=== PATIENT | female | born 1960 | race Caucasian/White ===

== ENCOUNTER 2017-09-17 03:38 | Emergency (ER) | payer MEDICARE, MEDICAID, SELFPAY ==
[2017-09-17 03:47] VITALS: BP 102/51; PULSE 72; RESP 18; TEMP 36.6; O2SAT 100; BMI 24.7
--- NOTE | 2017-09-17 03:48 | DI.CT.S_ITS ---
PROCEDURE: CT KIDNEY URETER BLADDER (KUB) INDICATIONS: 56 year-old female with bilateral flank pain, and history of left kidney stones. TECHNIQUE: Noncontrast 5 mm thick sections acquired from the diaphragms to the symphysis. 5 mm thick coronal and sagittal reformats were then performed. For radiation dose reduction, the following was used: automated exposure control, adjustment of mA and/or kV according to patient size. COMPARISON: [facility], CT, CT ABD PELVIS W CON, 10/30/2015, 11:45. [facility], CT, ABD/PELVIS W/CON (PNL), 04/17/2011, 16:17. [facility], RG, CT KUB, 03/11/2004, 3:24. FINDINGS: Preliminary interpretation rendered by [employer]. Image quality: Excellent. Lung bases: Lung bases are clear. Heart size is normal. Urinary system: Both kidneys are normal in size. 4 nonobstructing left renal stones are present, measuring up to 4 mm. Solitary 1 mm right renal stone is present as well. There is mild left hydronephrosis. No perinephric fat stranding. Both ureters appear non-dilated throughout their expected courses, with a 1 mm proximal left ureteral stone on axial image 44 and coronal image 25. Bladder wall thickness is normal; no calcified bladder stones. Other solid organs: Liver is normal in size. Gallbladder is surgically absent. Pancreas is normal in contours. Spleen is normal in size. No adrenal nodules. Peritoneum and bowel: Unenhanced bowel loops demonstrate normal wall thickness and caliber. The appendix appears normal. No free fluid or air. Nodes and vessels: No retroperitoneal or mesenteric adenopathy by size criteria. Aorta and inferior vena cava are normal in caliber, with minimal aortoiliac atherosclerosis. Abdominal wall: No ventral hernias. Pelvis: No free pelvic fluid. No inguinal hernias or adenopathy. The uterus is surgically absent. The ovaries are normal in size. Bones: No suspicious bony lesions. No vertebral body compression fractures. There is grade 1 L4-L5 spondylolisthesis from facet joint degeneration. IMPRESSION: 1. 1 mm proximal left ureteral stone causes mild left hydroureteronephrosis. 2. Several additional bilateral nonobstructing renal stones, measuring up to 4 mm on the left. No significant discrepancy with preliminary [employer] report. Dictated by: Bob Levine M.D. on 09/17/2017 at 8:17 Approved by: Bob Levine M.D. on 09/17/2017 at 8:26
--- NOTE | 2017-09-17 03:51 | ED.ABDPAIN ---
HPI - Abdominal Pain General Chief Complaint: Abdominal Pain Stated Complaint: n/v, back pain Time Seen by Provider: 09/17/17 03:39 Source: patient and EMS Mode of arrival: EMS Limitations: no limitations History of Present Illness HPI narrative: Patient is a 57-year-old female presenting that she feels like is a kidney stone. Woke up from her sleep she has bilateral flank pain and lower abdominal pain she has had multiple soft bowel movements today. Pain comes and goes in waves feeling nauseated and vomiting. She received fentanyl and Zofran with EMS this still feeling nauseated. No fever or chills. She has required lithotripsy in the past. Pain Consistency: intermittent Related Data Home Medications Medication Instructions Recorded Confirmed CA PANTOTHENATE/FOLIC ACID/VIT 1 tab PO QDAY #0 05/07/12 (MULTIVITAMIN) CHOLECALCIFEROL (VITAMIN D) 2,000 units PO QDAY #0 05/07/12 Fish Oil 1,000 mg PO QDAY #0 05/07/12 albuterol sulfate [Proventil HFA] 1 puff INH PRN #8.5 gm 05/07/12 hydrocodone-acetaminophen [[place]] 1 tab PO Q4H PRN #0 05/18/12 diazepam [Valium] 5 mg PO BID #0 10/27/12 Previous Rx's Medication Instructions Recorded beclomethasone dipropionate [Qvar] 0 INH BID #1 inh 10/27/12 cetirizine 10 mg PO HS #30 10/27/12 ondansetron [Zofran ODT] 4 mg PO Q6H PRN #10 tab 09/17/17 sulfamethoxazole-trimethoprim 1 tab PO BID 7 Days #14 tab 09/17/17 [Bactrim DS] Allergies Allergy/AdvReac Type Severity Reaction Status Date / Time gluten Allergy Intermediate SWELLING Verified 09/17/17 03:54 erythromycin base AdvReac Mild N/V Verified 09/17/17 03:54 lactose AdvReac Mild GAS/BLOATIN Verified 09/17/17 03:54 G Review of Systems Review of Systems All systems reviewed & are unremarkable except as noted in HPI and below Constitutional Denies chills, Denies fever(s), Denies headache(s), Denies lethargy and Denies weakness ENT Ears, Nose, Mouth, and Throat: Denies dizziness and Denies headache(s) Cardiovascular Denies chest pain, Denies irregular heart rhythm, Denies lightheadedness, Denies palpitations, Denies dyspnea, Denies dyspnea on exertion and Denies orthopnea Respiratory Denies cough, Denies dyspnea, Denies dyspnea on exertion and Denies wheezing Gastrointestinal Gastrointestinal: Reports system reviewed and no additional complaints, except as docu, Reports abdominal pain, Reports nausea and Reports vomiting Genitourinary Reports system reviewed and no additional complaints, except as docu and Reports as per HPI Neurologic Denies dizziness, Denies headache(s) and Denies weakness Endocrine Denies palpitations Allergic/Immunologic Denies wheezing PFSH Medical History Kidney stones (Acute) Surgical History History of lithotripsy (Acute) Exam Initial Vital Signs Initial Vital Signs: Vital Signs Temperature 97.9 F 09/17/17 03:47 Pulse Rate 72 09/17/17 03:47 Respiratory Rate 18 09/17/17 03:47 Blood Pressure 102/51 L 09/17/17 03:47 Pulse Oximetry 100 09/17/17 03:47 GENERAL: Alert well-appearing female actively vomiting HEENT: Head atraumatic,EOMI, pupils reactive, face symmetric, [moist] mucous membranes CARDIOVASCULAR: Regular rate and rhythm without murmurs, rubs or gallops. RESPIRATORY: Breath sounds equal bilaterally, no wheezes rales or rhonchi. ABDOMEN: Soft, mild lower abdominal tenderness without guarding or rebound. Normoactive bowel sounds all 4 quadrants. : Bilateral CVA tenderness EXTREMITIES: Normal range of motion, no clubbing or edema. Neurovascularly intact NEUROLOGICAL: Alert and oriented x4.Normal gait and speech. Cranial nerves II through XII grossly intact. SKIN: Warm, dry, no laceration, no petechiae, no rashes or lesions. Course Orders Ordered: ED Orders 09/17/17 03:48 CT kidney ureter bladder (KUB) Stat 09/17/17 04:16 Complete Blood Count AUTO DIFF Stat Comprehensive Metabolic Panel Stat Lipase Stat 09/17/17 04:58 Urine Culture Stat Urine Microscopic Stat Discontinued Medications Sodium Chloride (Normal Saline 0.9%) 1,000 mls @ 1,000 mls/hr IV CONT MEL Last Infusion: 09/17/17 05:38 Dose: 1,000 mls/hr Admin: 09/17/17 04:00 Dose: 1,000 mls/hr Ketorolac Tromethamine (Toradol) 30 mg IV NOW ONE Stop: 09/17/17 03:49 Last Admin: 09/17/17 03:59 Dose: 30 mg Ondansetron HCl (Zofran) 4 mg IV NOW ONE Stop: 09/17/17 03:49 Last Admin: 09/17/17 03:59 Dose: 4 mg Ondansetron HCl (Zofran Odt Prepack) 1 bottle MISC SEEINSTR ONE Stop: 09/17/17 05:26 Last Admin: 09/17/17 05:26 Dose: 1 bottle Vital Signs - 8 hr 09/17/17 03:47 09/17/17 05:36 Temperature 97.9 F Pulse Rate 72 74 Respiratory Rate 18 14 Blood Pressure 102/51 L 116/63 Pulse Oximetry 100 100 MDM - Abdominal Pain Lab Data Attestation: I reviewed the patient's lab results. Result diagrams: 09/17/17 04:16 09/17/17 04:16 Lab Results 09/17/17 09/17/17 09/17/17 Range/Units 04:16 04:16 04:58 WBC 15.1 H (4.5-11.0) X10^3/uL RBC 4.57 (4.0-5.2) X10^6/uL Hgb 14.1 (12.0-16.0) g/dL Hct 41.6 (36-46) % MCV 91.0 (80-100) fL MCH 30.8 (26-34) PG MCHC 33.8 (30-36) % RDW 13.1 (11.6-14.8) % Plt Count 242 (150-400) X10^3/uL Neut % (Auto) 90.4 H (50-75) % Lymph % (Auto) 5.1 L (25-40) % [place] % (Auto) 4.3 (3-14) % Eos % (Auto) 0.0 L (2-4) % Baso % (Auto) 0.2 (0-2) % Neut # (Auto) 70629 H (1645-4093) /uL Sodium 140 (137-145) mmol/L Potassium 3.9 (3.4-5.1) mmol/L Chloride 101 (98-107) mmol/L Carbon Dioxide 25 (22-32) mmol/L BUN 20 H (7-17) mg/dL Creatinine 0.60 (0.52-1.04) mg/dL Estimated GFR > 60.0 (>60) mL/min BUN/Creatinine Ratio 33.3 H (6-22) Glucose 205 H (70-100) mg/dL Calcium 9.5 (8.4-10.2) mg/dL Total Bilirubin 0.5 (0.2-1.3) mg/dL AST 30 (14-36) IU/L ALT 27 (9-52) IU/L Alkaline Phosphatase 88 (38-126) U/L Total Protein 7.1 (6.3-8.2) g/dL Albumin 4.2 (3.5-5.0) g/dL Globulin 2.9 (1.7-4.1) g/dL Albumin/Globulin Ratio 1.4 (1.0-2.8) Lipase 29 (23-300) U/L Urine RBC 30-100/hpf H (0-5/HPF) Urine WBC 0-1/hpf (0-5/HPF) Ur Squamous Epith Cells 0-1 /hpf Urine Bacteria Few (2-10) H (None) Ur Culture Indicated? Specimen cultured Micro UA Comment Not Reportable Imaging Data CT: KUB: Radiologist's impression: retail shift supervisor report: 3 mm mid left ureteral calculus causes mild left hydronephrosis and mild left hydroureter. Additional bilateral nephrolithiasis. No right hydronephrosis. A normal right ureter. No bladder calculi. Normal appendix. MDM Narrative Medical decision making narrative: Patient pain is much better after Toradol. She know she has multiple stones she is not sure the urologist she used to see. She has some bacteria in her urine and leukocytosis. Will treat for UTI and pyelo. She has Lortab at home for pain control. Instructed on warning signs and when to return to the ED. Discharge Plan Departure Patient Disposition: Home, Self-Care Clinical Impression: Kidney stone on left side, UTI (urinary tract infection) Discharge Date/Time: 09/17/17 05:31 Interventions: ED Discharge Assessment Last Done: 09/17/17 05:36 Instructions: Kidney Stones -- Child Activity Restrictions/Additional Instructions: *Increase fluid intake *Call urology office tomorrow, to schedule follow-up appointment. Strain urine, try to catch stone -If you should have fever, or pain is uncontrolled with medication at home or any other concerning symptoms return to ER for further evaluation MEDICATIONS Take Motrin 800 mg every 8 hours as needed for pain Take Zofran every 4-6 hours if needed for nausea Prescriptions: New ondansetron [Zofran ODT] 4 mg tablet,disintegrating 4 mg PO Q6H PRN (Reason: nausea and vomiting) Qty: 10 RF: 0 sulfamethoxazole-trimethoprim [Bactrim DS] 800-160 mg tablet 1 tab PO BID 7 Days Qty: 14 RF: 0 No Action CA PANTOTHENATE/FOLIC ACID/VIT (MULTIVITAMIN) 1 tab PO QDAY Qty: 0 RF: 0 albuterol sulfate [Proventil HFA] 90 MCG/PUFF HFA aerosol inhaler 1 puff INH PRN Qty: 8.5 RF: 0 CHOLECALCIFEROL (VITAMIN D) 2,000 units PO QDAY Qty: 0 RF: 0 Fish Oil 1,000 mg PO QDAY Qty: 0 RF: 0 hydrocodone-acetaminophen [[place]] 7.5 MG/325 MG tablet 1 tab PO Q4H PRN Qty: 0 RF: 0 diazepam [Valium] 5 MG tablet 5 mg PO BID Qty: 0 RF: 0 cetirizine 10 MG tablet 10 mg PO HS Qty: 30 RF: 2 beclomethasone dipropionate [Qvar] 40 MCG/PUFF aerosol INH BID Qty: 1 RF: 2 Referrals: [facility] [Outside] [facility] [Outside] Freddie Downs MD [Non-Staff] - Hui Edge PA-C [Primary Care Provider] -
--- NOTE | 2017-09-17 03:54 | ED_ITS ---
HPI - Abdominal Pain General Chief Complaint: Abdominal Pain Stated Complaint: n/v, back pain Time Seen by Provider: 09/17/17 03:39 Source: patient and EMS Mode of arrival: EMS Limitations: no limitations History of Present Illness HPI narrative: Patient is a 57-year-old female presenting that she feels like is a kidney stone. Woke up from her sleep she has bilateral flank pain and lower abdominal pain she has had multiple soft bowel movements today. Pain comes and goes in waves feeling nauseated and vomiting. She received fentanyl and Zofran with EMS this still feeling nauseated. No fever or chills. She has required lithotripsy in the past. Pain Consistency: intermittent Related Data Home Medications Medication Instructions Recorded Confirmed CA PANTOTHENATE/FOLIC ACID/VIT 1 tab PO QDAY #0 05/07/12 (MULTIVITAMIN) CHOLECALCIFEROL (VITAMIN D) 2,000 units PO QDAY #0 05/07/12 Fish Oil 1,000 mg PO QDAY #0 05/07/12 albuterol sulfate [Proventil HFA] 1 puff INH PRN #8.5 gm 05/07/12 hydrocodone-acetaminophen [[place]] 1 tab PO Q4H PRN #0 05/18/12 diazepam [Valium] 5 mg PO BID #0 10/27/12 Previous Rx's Medication Instructions Recorded beclomethasone dipropionate [Qvar] 0 INH BID #1 inh 10/27/12 cetirizine 10 mg PO HS #30 10/27/12 ondansetron [Zofran ODT] 4 mg PO Q6H PRN #10 tab 09/17/17 sulfamethoxazole-trimethoprim 1 tab PO BID 7 Days #14 tab 09/17/17 [Bactrim DS] Allergies Allergy/AdvReac Type Severity Reaction Status Date / Time gluten Allergy Intermediate SWELLING Verified 09/17/17 03:54 erythromycin base AdvReac Mild N/V Verified 09/17/17 03:54 lactose AdvReac Mild GAS/BLOATIN Verified 09/17/17 03:54 G Review of Systems Review of Systems All systems reviewed & are unremarkable except as noted in HPI and below Constitutional Denies chills, Denies fever(s), Denies headache(s), Denies lethargy and Denies weakness ENT Ears, Nose, Mouth, and Throat: Denies dizziness and Denies headache(s) Cardiovascular Denies chest pain, Denies irregular heart rhythm, Denies lightheadedness, Denies palpitations, Denies dyspnea, Denies dyspnea on exertion and Denies orthopnea Respiratory Denies cough, Denies dyspnea, Denies dyspnea on exertion and Denies wheezing Gastrointestinal Gastrointestinal: Reports system reviewed and no additional complaints, except as docu, Reports abdominal pain, Reports nausea and Reports vomiting Genitourinary Reports system reviewed and no additional complaints, except as docu and Reports as per HPI Neurologic Denies dizziness, Denies headache(s) and Denies weakness Endocrine Denies palpitations Allergic/Immunologic Denies wheezing PFSH Medical History Kidney stones (Acute) Surgical History History of lithotripsy (Acute) Exam Initial Vital Signs Initial Vital Signs: Vital Signs Temperature 97.9 F 09/17/17 03:47 Pulse Rate 72 09/17/17 03:47 Respiratory Rate 18 09/17/17 03:47 Blood Pressure 102/51 L 09/17/17 03:47 Pulse Oximetry 100 09/17/17 03:47 GENERAL: Alert well-appearing female actively vomiting HEENT: Head atraumatic,EOMI, pupils reactive, face symmetric, [moist] mucous membranes CARDIOVASCULAR: Regular rate and rhythm without murmurs, rubs or gallops. RESPIRATORY: Breath sounds equal bilaterally, no wheezes rales or rhonchi. ABDOMEN: Soft, mild lower abdominal tenderness without guarding or rebound. Normoactive bowel sounds all 4 quadrants. : Bilateral CVA tenderness EXTREMITIES: Normal range of motion, no clubbing or edema. Neurovascularly intact NEUROLOGICAL: Alert and oriented x4.Normal gait and speech. Cranial nerves II through XII grossly intact. SKIN: Warm, dry, no laceration, no petechiae, no rashes or lesions. Course Orders Ordered: ED Orders 09/17/17 03:48 CT kidney ureter bladder (KUB) Stat 09/17/17 04:16 Complete Blood Count AUTO DIFF Stat Comprehensive Metabolic Panel Stat Lipase Stat 09/17/17 04:58 Urine Culture Stat Urine Microscopic Stat Discontinued Medications Sodium Chloride (Normal Saline 0.9%) 1,000 mls @ 1,000 mls/hr IV CONT MEL Last Infusion: 09/17/17 05:38 Dose: 1,000 mls/hr Admin: 09/17/17 04:00 Dose: 1,000 mls/hr Ketorolac Tromethamine (Toradol) 30 mg IV NOW ONE Stop: 09/17/17 03:49 Last Admin: 09/17/17 03:59 Dose: 30 mg Ondansetron HCl (Zofran) 4 mg IV NOW ONE Stop: 09/17/17 03:49 Last Admin: 09/17/17 03:59 Dose: 4 mg Ondansetron HCl (Zofran Odt Prepack) 1 bottle MISC SEEINSTR ONE Stop: 09/17/17 05:26 Last Admin: 09/17/17 05:26 Dose: 1 bottle Vital Signs - 8 hr 09/17/17 03:47 09/17/17 05:36 Temperature 97.9 F Pulse Rate 72 74 Respiratory Rate 18 14 Blood Pressure 102/51 L 116/63 Pulse Oximetry 100 100 MDM - Abdominal Pain Lab Data Attestation: I reviewed the patient's lab results. Result diagrams: 09/17/17 04:16 09/17/17 04:16 Lab Results 09/17/17 09/17/17 09/17/17 Range/Units 04:16 04:16 04:58 WBC 15.1 H (4.5-11.0) X10^3/uL RBC 4.57 (4.0-5.2) X10^6/uL Hgb 14.1 (12.0-16.0) g/dL Hct 41.6 (36-46) % MCV 91.0 (80-100) fL MCH 30.8 (26-34) PG MCHC 33.8 (30-36) % RDW 13.1 (11.6-14.8) % Plt Count 242 (150-400) X10^3/uL Neut % (Auto) 90.4 H (50-75) % Lymph % (Auto) 5.1 L (25-40) % [place] % (Auto) 4.3 (3-14) % Eos % (Auto) 0.0 L (2-4) % Baso % (Auto) 0.2 (0-2) % Neut # (Auto) 59462 H (2457-7924) /uL Sodium 140 (137-145) mmol/L Potassium 3.9 (3.4-5.1) mmol/L Chloride 101 (98-107) mmol/L Carbon Dioxide 25 (22-32) mmol/L BUN 20 H (7-17) mg/dL Creatinine 0.60 (0.52-1.04) mg/dL Estimated GFR > 60.0 (>60) mL/min BUN/Creatinine Ratio 33.3 H (6-22) Glucose 205 H (70-100) mg/dL Calcium 9.5 (8.4-10.2) mg/dL Total Bilirubin 0.5 (0.2-1.3) mg/dL AST 30 (14-36) IU/L ALT 27 (9-52) IU/L Alkaline Phosphatase 88 (38-126) U/L Total Protein 7.1 (6.3-8.2) g/dL Albumin 4.2 (3.5-5.0) g/dL Globulin 2.9 (1.7-4.1) g/dL Albumin/Globulin Ratio 1.4 (1.0-2.8) Lipase 29 (23-300) U/L Urine RBC 30-100/hpf H (0-5/HPF) Urine WBC 0-1/hpf (0-5/HPF) Ur Squamous Epith Cells 0-1 /hpf Urine Bacteria Few (2-10) H (None) Ur Culture Indicated? Specimen cultured Micro UA Comment Not Reportable Imaging Data CT: KUB: Radiologist's impression: shift mgr report: 3 mm mid left ureteral calculus causes mild left hydronephrosis and mild left hydroureter. Additional bilateral nephrolithiasis. No right hydronephrosis. A normal right ureter. No bladder calculi. Normal appendix. MDM Narrative Medical decision making narrative: Patient pain is much better after Toradol. She know she has multiple stones she is not sure the urologist she used to see. She has some bacteria in her urine and leukocytosis. Will treat for UTI and pyelo. She has Lortab at home for pain control. Instructed on warning signs and when to return to the ED. Discharge Plan Departure Patient Disposition: Home, Self-Care Clinical Impression: Kidney stone on left side, UTI (urinary tract infection) Discharge Date/Time: 09/17/17 05:31 Interventions: ED Discharge Assessment Last Done: 09/17/17 05:36 Instructions: Kidney Stones -- Child Activity Restrictions/Additional Instructions: *Increase fluid intake *Call urology office tomorrow, to schedule follow-up appointment. Strain urine, try to catch stone -If you should have fever, or pain is uncontrolled with medication at home or any other concerning symptoms return to ER for further evaluation MEDICATIONS Take Motrin 800 mg every 8 hours as needed for pain Take Zofran every 4-6 hours if needed for nausea Prescriptions: New ondansetron [Zofran ODT] 4 mg tablet,disintegrating 4 mg PO Q6H PRN (Reason: nausea and vomiting) Qty: 10 RF: 0 sulfamethoxazole-trimethoprim [Bactrim DS] 800-160 mg tablet 1 tab PO BID 7 Days Qty: 14 RF: 0 No Action CA PANTOTHENATE/FOLIC ACID/VIT (MULTIVITAMIN) 1 tab PO QDAY Qty: 0 RF: 0 albuterol sulfate [Proventil HFA] 90 MCG/PUFF HFA aerosol inhaler 1 puff INH PRN Qty: 8.5 RF: 0 CHOLECALCIFEROL (VITAMIN D) 2,000 units PO QDAY Qty: 0 RF: 0 Fish Oil 1,000 mg PO QDAY Qty: 0 RF: 0 hydrocodone-acetaminophen [[place]] 7.5 MG/325 MG tablet 1 tab PO Q4H PRN Qty: 0 RF: 0 diazepam [Valium] 5 MG tablet 5 mg PO BID Qty: 0 RF: 0 cetirizine 10 MG tablet 10 mg PO HS Qty: 30 RF: 2 beclomethasone dipropionate [Qvar] 40 MCG/PUFF aerosol INH BID Qty: 1 RF: 2 Referrals: [facility] [Outside] [facility] [Outside] Freddie Downs MD [Non-Staff] - Hui Edge PA-C [Primary Care Provider] -
[2017-09-17] MEDS: ONDANSETRON 4 MG/2 ML INJ IV (03:59)
[2017-09-17] MEDS: KETOROLAC 60 MG/2 ML VIAL 30 MG IV (03:59)
[2017-09-17] MEDS: SODIUM CHLORIDE 0.9% 1,000 ML 1000 ML IV (04:00)
[2017-09-17 04:26] LABS: Add Manual Diff / Slide Review NO; Basophils Percent Auto 0.2 % (0-2); Hematocrit 41.6 % (36-46); Hemoglobin 14.1 g/dL (12.0-16.0); Lymphocytes Percent Auto 5.1 % (25-40); Mean Corpuscular HGB Conc 33.8 % (30-36); Mean Corpuscular Hemoglobin 30.8 PG (26-34); Monocytes Percent Auto 4.3 % (3-14); Neutrophils Absolute Auto 13600 /uL (3000-5900); Neutrophils Percent Auto 90.4 % (50-75); Platelet Count 242 X10^3/uL (150-400); Red Blood Cell Count 4.57 X10^6/uL (4.0-5.2); Red Cell Distribution Width 13.1 % (11.6-14.8); White Blood Cell Count 15.1 X10^3/uL (4.5-11.0)
[2017-09-17 04:33] LABS: Alanine Aminotransferase 27 IU/L (9-52); Albumin 4.2 g/dL (3.5-5.0); Albumin Globulin Ratio 1.4 (1.0-2.8); Alkaline Phosphatase 88 U/L (38-126); Aspartate Aminotransferase 30 IU/L (14-36); BUN Creatinine Ratio 33.3 (6-22); Bilirubin Total 0.5 mg/dL (0.2-1.3); Blood Urea Nitrogen 20 mg/dL (7-17); Calcium 9.5 mg/dL (8.4-10.2); Carbon Dioxide 25 mmol/L (22-32); Chloride 101 mmol/L (98-107); Estimated Glomerular Filt Rate > 60.0 mL/min (>60); Globulin 2.9 g/dL (1.7-4.1); Glucose 205 mg/dL (70-100); HEMOLYSIS < 15 (0-50); Lipase 29 U/L (23-300); Potassium 3.9 mmol/L (3.4-5.1); Sodium 140 mmol/L (137-145); Total Protein 7.1 g/dL (6.3-8.2)
[2017-09-17 05:17] LABS: WBC Urine 0-1/HPF (0-5/HPF)
[2017-09-17 05:18] LABS: Bacteria Urine Few (2-10); Culture Indicated Urine Specimen Cultured; RBC Urine 30-100/HPF (0-5/HPF); Squamous Epithelial Cell Urine 0-1 /HPF
[2017-09-17] MEDS: ONDANSETRON 4 MG ODT PREPACK 1 BOTTLE MISC (05:26)
[2017-09-17 05:36] VITALS: BP 116/63; PULSE 74; RESP 14; O2SAT 100
== END 2017-09-17 05:31 | disposition home or self-care (01) ==
PROVIDERS: Emergency Provider Emergency Medicine; PCP Physician Assistant
DX: N20.0 Calculus of kidney (principal); N39.0 Urinary tract infection, site not specified
CPT/HCPCS: 36415; 74176; 80053; 81003; 81015; 83690; 85025; 87086; 96374; 96375; 99283; 99284; J1885; J2405

== ENCOUNTER → 2017-10-28 09:41 | Outpatient (CLI) | payer MEDICARE, MEDICAID, SELFPAY ==
--- NOTE | 2017-10-28 | DI.RAD.S_ITS ---
PROCEDURE: XR KUB INDICATIONS: KIDNEY STONES TECHNIQUE: One view of the abdomen acquired. COMPARISON: 09/17/2017 CT. FINDINGS: Surgical changes and devices: Right upper quadrant surgical clips. Bowel: Bowel gas pattern is normal. Soft tissues: No suspicious abdominal calcifications. Visualized solid organ contours appear normal in size. Bones: No suspicious bony lesions. IMPRESSION: Known left renal calculi are below the resolution of this study. Dictated by: Oren Ibarra M.D. on 10/28/2017 at 10:25 Approved by: Oren Ibrara M.D. on 10/28/2017 at 10:27
[2017-10-28 12:52] LABS: Calcium 9.9 mg/dL (8.4-10.2); Uric Acid 3.2 mg/dL (2.5-6.2)
[2017-10-30 13:28] LABS: Parathyroid Hormone Int 56 pg/mL (14-64)
== END ==
PROVIDERS: PCP Physician Assistant; Visit Provider Specialist
DX: N20.0 Calculus of kidney (principal)
CPT/HCPCS: 36415; 74018; 82310; 83970; 84550

== ENCOUNTER 2017-11-05 23:09 | Emergency (ER) | payer MEDICARE, MEDICAID, SELFPAY ==
[2017-11-05 23:30] VITALS: BP 151/90; PULSE 113; RESP 18; TEMP 36.5; O2SAT 98
[2017-11-06] MEDS: ONDANSETRON 4 MG ODT PO (00:55)
[2017-11-06] MEDS: KETOROLAC 60 MG/2 ML VIAL IM (00:55)
--- NOTE | 2017-11-06 00:55 | ED_ITS ---
HPI - Nausea/Vomiting/Diarrhea General Chief complaint: Nausea/Vomiting/Diarrhea Stated complaint: sgy today, unable to urinate Time Seen by Provider: 11/06/17 00:50 Source: patient Mode of arrival: ambulatory Limitations: no limitations History of Present Illness HPI Narrative: Patient is a 56-year-old female who presents with decreased urination nausea and increased pain. She had lithotripsy done earlier today. She has only urinated a small amount of blood. She gets nauseated with her pain pills. She is unable to keep the Zofran tablets down previously ODT has worked well. However she is out. No fevers. However due to the severe nausea and pain she has been unable to tolerate any fluids. Released about 4:00 p.m. this afternoon. complaint: nausea Onset (ago): hour(s) Related Data Home Medications Medication Instructions Recorded Confirmed CA PANTOTHENATE/FOLIC ACID/VIT 1 tab PO QDAY #0 05/07/12 (MULTIVITAMIN) CHOLECALCIFEROL (VITAMIN D) 2,000 units PO QDAY #0 05/07/12 albuterol sulfate [Proventil HFA] 1 puff INH PRN #8.5 gm 05/07/12 hydrocodone-acetaminophen [[place]] 1 tab PO Q4H PRN #0 05/18/12 diazepam [Valium] 5 mg PO BID #0 10/27/12 Previous Rx's Medication Instructions Recorded ondansetron [Zofran ODT] 4 mg PO Q6H PRN #10 tab 09/17/17 ondansetron [Zofran ODT] 4 mg PO Q6-8H PRN #14 tab 11/06/17 Allergies Allergy/AdvReac Type Severity Reaction Status Date / Time gluten Allergy Intermediate SWELLING Verified 11/05/17 23:40 erythromycin base AdvReac Mild N/V Verified 11/05/17 23:40 lactose AdvReac Mild GAS/BLOATIN Verified 11/05/17 23:40 G Review of Systems Review of Systems GENERAL: Denies chills, fatigue, malaise, fever, sweats, travel HEENT: Denies sinus pain, ear pain, sore throat, difficulty swallowing, neck pain RESPIRATORY: Denies dyspnea, cough, wheezing, hemoptysis, sputum. CARDIOVASCULAR: Denies chest pain, palpitations, orthopnea, edema GASTROINTESTINAL: See HPI : See HPI MUSCULOSKELETAL: Denies weakness, joint pain, or bony pain SKIN: No rash, no erythema, no pruritus NEUROLOGIC: Denies weakness, dizziness, headache, numbness, change in speech, confusion PSYCHIATRIC: No concerning psychosocial issues. 12 point review of systems is negative except for those stated above and HPI PFSH Medical History Kidney stones (Acute) Surgical History History of lithotripsy (Acute) Social History Smoking Status: Former smoker Exam Initial Vital Signs Initial Vital Signs: Vital Signs Temperature 97.7 F 11/05/17 23:30 Pulse Rate 113 H 11/05/17 23:30 Respiratory Rate 18 11/05/17 23:30 Blood Pressure 151/90 H 11/05/17 23:30 Pulse Oximetry 98 11/05/17 23:30 GENERAL: Standing in room, crying upset but appears nontoxic HEENT: Head atraumatic,EOMI, pupils reactive, face symmetric, [moist] mucous membranes CARDIOVASCULAR: Peripheral pulses intact RESPIRATORY: Speaking without difficulty no respiratory distress ABDOMEN: Soft, nontender. Normoactive bowel sounds all 4 quadrants. No guarding or rebound. : Left CVA tenderness EXTREMITIES: Normal range of motion, no clubbing or edema. Neurovascularly intact NEUROLOGICAL: Alert and oriented x4.Normal gait and speech. Cranial nerves II through XII grossly intact. SKIN: Warm, dry, no laceration, no petechiae, no rashes or lesions. Course Orders Ordered: Discontinued Medications Ketorolac Tromethamine (Toradol) 60 mg IM NOW ONE Stop: 11/06/17 00:51 Last Admin: 11/06/17 00:55 Dose: 60 mg Ondansetron HCl (Zofran Odt) 4 mg PO NOW ONE Stop: 11/06/17 00:51 Last Admin: 11/06/17 00:55 Dose: 4 mg Ondansetron HCl (Zofran Odt Prepack) 1 bottle MISC SEEINSTR ONE Stop: 11/06/17 02:06 Last Admin: 11/06/17 02:14 Dose: 1 bottle Vital Signs - 8 hr 11/05/17 23:30 Temperature 97.7 F Pulse Rate 113 H Respiratory Rate 18 Blood Pressure 151/90 H Pulse Oximetry 98 MDM - Nausea/Vomiting/Diarrhea MDM Narrative Medical decision making narrative: Patient responded well to Toradol and Zofran. She is feeling much better she tolerating oral fluids. She was actually discharged around 4:00 p.m. this afternoon. She states she is supposed to have a patch behind her ear to help with the nausea which she did not receive. She has Zofran tablets but only does Zofran 0DT work for her. She will follow up with Urology as needed. I discussed all findings with the patient. Education has been performed regarding treatment plan, diagnosis, warning signs and symptoms and all concerns have been addressed. Verbally agree with and understood all of the above. Discharge Plan Departure Patient Disposition: Home, Self-Care Clinical Impression: Vomiting Discharge Date/Time: 11/06/17 02:10 Interventions: ED Discharge Assessment Last Done: 11/06/17 02:10 Instructions: DI for Dehydration -- Adult Activity Restrictions/Additional Instructions: *You have been diagnosed with vomiting *What to do: Likely reacting to anesthesia, pain and pain medication *Continue to take medications as directed Zofran 4 mg every 6 hr or 8 mg every 8 hr if needed for nausea or vomiting *Follow up with your primary care provider in 2-3 days, follow up with Urology as previously scheduled *Return to ER if you should have a fever, increasing pain, inability to urinate or any new, worsening or concerning symptoms Prescriptions: New ondansetron [Zofran ODT] 4 mg tablet,disintegrating 4 mg PO Q6-8H PRN (Reason: nausea and vomiting) Qty: 14 RF: 0 No Action CA PANTOTHENATE/FOLIC ACID/VIT (MULTIVITAMIN) 1 tab PO QDAY Qty: 0 RF: 0 albuterol sulfate [Proventil HFA] 90 MCG/PUFF HFA aerosol inhaler 1 puff INH PRN Qty: 8.5 RF: 0 CHOLECALCIFEROL (VITAMIN D) 2,000 units PO QDAY Qty: 0 RF: 0 hydrocodone-acetaminophen [[place]] 7.5 MG/325 MG tablet 1 tab PO Q4H PRN Qty: 0 RF: 0 diazepam [Valium] 5 MG tablet 5 mg PO BID Qty: 0 RF: 0 ondansetron [Zofran ODT] 4 mg tablet,disintegrating 4 mg PO Q6H PRN (Reason: nausea and vomiting) Qty: 10 RF: 0
[2017-11-06 01:04] VITALS: BP 151/90; PULSE 113; RESP 18; TEMP 36.5; O2SAT 98
[2017-11-06] MEDS: ONDANSETRON 4 MG ODT PREPACK 1 BOTTLE MISC (02:14)
== END 2017-11-06 02:10 | disposition home or self-care (01) ==
PROVIDERS: Emergency Provider Emergency Medicine; PCP Physician Assistant
DX: R11.0 Nausea (principal)
CPT/HCPCS: 51798; 96372; 99283; J1885

== ENCOUNTER 2018-01-06 12:35 | Emergency (ER) | payer OTHER, MEDICARE, MEDICAID, SELFPAY ==
[2018-01-06 12:40] VITALS: BP 127/77; PULSE 89; RESP 20; TEMP 36.5; O2SAT 100
--- NOTE | 2018-01-06 15:02 | ED_ITS ---
HPI - Trauma General Chief Complaint: Trauma Stated Complaint: Lower back pain Time Seen by Provider: 01/06/18 15:02 Related Data Home Medications Medication Instructions Recorded Confirmed CA PANTOTHENATE/FOLIC ACID/VIT 1 tab PO QDAY #0 05/07/12 (MULTIVITAMIN) CHOLECALCIFEROL (VITAMIN D) 2,000 units PO QDAY #0 05/07/12 hydrocodone-acetaminophen [[place]] 1 tab PO Q4H PRN #0 05/18/12 01/06/18 diazepam [Valium] 5 mg PO BID #0 10/27/12 01/06/18 albuterol sulfate [Ventolin HFA] 1 puff INHALATION PRN PRN 01/06/18 01/06/18 estradiol 1 tab PO DAILY 01/06/18 01/06/18 montelukast 10 mg PO DAILY 01/06/18 01/06/18 tamsulosin 1 cap PO DAILY 01/06/18 01/06/18 Previous Rx's Medication Instructions Recorded ondansetron [Zofran ODT] 4 mg PO Q6H PRN #10 tab 09/17/17 Allergies Allergy/AdvReac Type Severity Reaction Status Date / Time gluten Allergy Intermediate SWELLING Verified 11/05/17 23:40 erythromycin base AdvReac Mild N/V Verified 11/05/17 23:40 lactose AdvReac Mild GAS/BLOATIN Verified 11/05/17 23:40 G PFSH Medical History Kidney stones (Acute) Surgical History History of lithotripsy (Acute) Social History Smoking Status: Former smoker Exam Initial Vital Signs Initial Vital Signs: Vital Signs Temperature 97.7 F 01/06/18 12:40 Pulse Rate 89 01/06/18 12:40 Respiratory Rate 20 01/06/18 12:40 Blood Pressure 127/77 01/06/18 12:40 Pulse Oximetry 100 01/06/18 12:40 Course Vital Signs - 8 hr 01/06/18 12:40 Temperature 97.7 F Pulse Rate 89 Respiratory Rate 20 Blood Pressure 127/77 Pulse Oximetry 100 Discharge Plan Departure Prescriptions: No Action CA PANTOTHENATE/FOLIC ACID/VIT (MULTIVITAMIN) 1 tab PO QDAY Qty: 0 RF: 0 CHOLECALCIFEROL (VITAMIN D) 2,000 units PO QDAY Qty: 0 RF: 0 hydrocodone-acetaminophen [[place]] 7.5 MG/325 MG tablet 1 tab PO Q4H PRN Qty: 0 RF: 0 diazepam [Valium] 5 MG tablet 5 mg PO BID Qty: 0 RF: 0 ondansetron [Zofran ODT] 4 mg tablet,disintegrating 4 mg PO Q6H PRN (Reason: nausea and vomiting) Qty: 10 RF: 0 estradiol 1 mg tablet 1 tab PO DAILY RF: 0 tamsulosin 0.4 mg capsule 1 cap PO DAILY RF: 0 montelukast 10 mg tablet 10 mg PO DAILY RF: 0 albuterol sulfate [Ventolin HFA] 90 mcg/actuation HFA aerosol inhaler 1 puff Inhalation PRN PRN (Reason: Shortness Of Breath) RF: 0
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
[2018-01-06 15:30] VITALS: BP 138/79; PULSE 106; RESP 17; O2SAT 100
[2018-01-06 16:36] VITALS: PULSE 810; O2SAT 98
== END 2018-01-06 16:37 | disposition home or self-care (01) ==
PROVIDERS: Emergency Provider Nurse Practitioner Family; PCP Physician Assistant
DX: M54.9 Dorsalgia, unspecified (principal)
CPT/HCPCS: 72125; 99282; 99284

== ENCOUNTER → 2018-01-13 14:51 | Outpatient (CLI) | payer MEDICARE, MEDICAID, SELFPAY ==
--- NOTE | 2018-01-13 14:55 | DI.RAD.S_ITS ---
PROCEDURE: XR THORACIC SPINE 3V INDICATIONS: Pain in joints of unspecified hand/Other intervert TECHNIQUE: 3 views of the thoracic spine were acquired. COMPARISON: [facility], CT, CT CERVICAL SPINE WO CON, 01/06/2018, 15:26. FINDINGS: Bones: No fractures or dislocations. No suspicious bony lesions. 12 pairs of ribs are noted, and appear intact where visualized. Soft tissues: No paravertebral stripe thickening. IMPRESSION: Mild degenerative disc disease along the thoracic spine and there is a prior cervical fusion procedure anteriorly and posteriorly at approximately the junction of the middle and lower thirds of the cervical line partially visualized. No recent trauma is found, no subluxation is present. No spinal or foraminal stenosis along the thoracic spine is seen. Dictated by: Herber Jerome M.D. on 01/13/2018 at 16:41 Approved by: Herber Jerome M.D. on 01/13/2018 at 16:43
--- NOTE | 2018-01-13 14:55 | DI.RAD.S_ITS ---
PROCEDURE: XR HAND RT 2V INDICATIONS: Pain in joints of unspecified hand/Other intervert TECHNIQUE: 2 views of the hand(s) acquired. COMPARISON: [facility], , HAND 3V RIGHT, 10/23/2014, 10:42. FINDINGS: Bones: No fractures or dislocations. The pattern is inner phalangeal degenerative osteoarthritic joint space thinning has not appreciably worsened. No erosive arthritis is found. Carpal bones are normally aligned. No suspicious bony lesions. Soft tissues: No suspicious soft tissue calcifications. IMPRESSION: Stable appearing mild degenerative osteoarthritic change at the interphalangeal joints distally. Dictated by: Herber Jerome M.D. on 01/13/2018 at 15:50 Approved by: Herber Jerome M.D. on 01/13/2018 at 15:58
--- NOTE | 2018-01-13 14:55 | DI.RAD.S_ITS ---
PROCEDURE: XR LUMBAR SPINE 2-3V INDICATIONS: Pain in joints of unspecified hand/Other intervert TECHNIQUE: 2 views of the lumbar spine were acquired. COMPARISON: [facility], , L-SPINE MINIMUM 4 VIEWS, 09/20/2014, 10:52. FINDINGS: Bones: 5 [id number] vertebrae are present. There is mildly dextroscoliotic spinal alignment, centered at L3, without additional underlying morphologic anomaly. No vertebral body compression fractures. Persistent mild degenerative disc disease and mild to moderate facet osteoarthritis best seen over the lower third of the LS spine. No suspicious bony lesions. Soft tissues: Overlying bowel gas pattern is normal. No suspicious soft tissue calcifications. IMPRESSION: No trauma found. Stable appearing convex rightward scoliosis centered at L3 with mild degenerative disc disease and mild to moderate facet osteoarthritis as was previously the case over the lower third of the LS spine. Spinal and foraminal stenosis may be present at L4-5 and L5-S1 as a result. Dictated by: Herber Jerome M.D. on 01/13/2018 at 16:39 Approved by: Herber Jerome M.D. on 01/13/2018 at 16:41
--- NOTE | 2018-01-13 14:55 | DI.RAD.S_ITS ---
PROCEDURE: XR HAND LT 2V INDICATIONS: Pain in joints of unspecified hand/Other intervert TECHNIQUE: 2 views of the hand(s) acquired. COMPARISON: [facility], CR, XR HAND 3VW LT, 01/15/2016, 10:25. [facility], CR, HAND 3V RIGHT, 10/23/2014, 10:42. FINDINGS: Bones: No fractures or dislocations. Mild degenerative osteophyte joint space thinning has been present on the left and this has not appreciably worsened. Carpal bones are normally aligned. No suspicious bony lesions. Soft tissues: No suspicious soft tissue calcifications. IMPRESSION: Degenerative osteoarthritis is mild on the left and without evidence of associated erosive arthritis. No trauma found. Dictated by: Herber Jerome M.D. on 01/13/2018 at 15:58 Approved by: Herber Jerome M.D. on 01/13/2018 at 15:59
== END ==
PROVIDERS: PCP Physician Assistant; Visit Provider Physician Assistant
DX: M51.36 Other intervertebral disc degeneration, lumbar region (principal); M51.34 Other intervertebral disc degeneration, thoracic region; M19.042 Primary osteoarthritis, left hand; M19.041 Primary osteoarthritis, right hand; M41.86 Other forms of scoliosis, lumbar region; M47.817 Spondylosis without myelopathy or radiculopathy, lumbosacral region; Z98.1 Arthrodesis status
CPT/HCPCS: 72072; 72100; 73120

== ENCOUNTER → 2018-03-31 14:14 | Outpatient (CLI) | payer OTHER, MEDICARE, MEDICAID, SELFPAY ==
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
== END ==
PROVIDERS: PCP Physician Assistant; Visit Provider Orthopaedic Surgery
DX: S39.012A Strain of muscle, fascia and tendon of lower back, initial encounter (principal); M51.36 Other intervertebral disc degeneration, lumbar region; M47.816 Spondylosis without myelopathy or radiculopathy, lumbar region; M48.061 Spinal stenosis, lumbar region without neurogenic claudication; M43.16 Spondylolisthesis, lumbar region
CPT/HCPCS: 72148

== ENCOUNTER 2018-08-31 10:30 | Outpatient (RCR) | payer MEDICARE, MEDICAID, SELFPAY ==
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
--- NOTE | 2018-08-25 18:18 | ST.OPPOC ---
Care Team Visit Care Team Role Provider Type Hui Edge PA-C Primary Care Provider Physician Address: [address] [place] [address], [id number] Jeet Valerio MD Attending Provider Physician Address: [address] [place] [address], [address] Speech Pathology Plan of Care Plan of Care Dates 08/24/18-09/24/18
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
== END 2018-09-02 10:06 | disposition home or self-care (01) ==
LOC: SP 10:30
PROVIDERS: PCP Physician Assistant; Visit Provider Physical Medicine & Rehabilitation
DX: F07.81 Postconcussional syndrome (principal)
CPT/HCPCS: 96125; 97127